=== PATIENT | male | born 1945 | race Hispanic/Latino ===

== ENCOUNTER 2018-06-12 07:40 | Day surgery (SDC) | payer MEDICARE, BC ==
[2018-06-05 11:54] VITALS: BMI 29.0
[~2018-06-12 07:40] MED LIST: Chondroitin/Hyaluronate Opth Syringe KIT (0.55 ml-0.5 ml) IO ONE; Ciprofloxacin 0.3% OPTH SOLN OD SCH; Hyaluronidase Human, Recombi 150 U/ML VIAL ONE; Ketorolac Tromethamine 0.5% Opth Soln (3 ml) OD SCH; Lactated Ringer's 500 ML IV ONE; Lidocaine 2% MPF (5 ml) Inj ONE; Phenylephrine 2.5% Opht Soln OD SCH; Povidone Iodine Ophthalmic 5% Soln ONE; Tetracaine 0.5% Ophth (OR ONLY) ONE; Tropicamide 0.5% Opht Sol OD SCH; acetaZOLAMIDE 500 mg SR Cap PO ONE
[2018-06-12] MEDS ORDERED: Lactated Ringer's 500 ML IV ONE (08:03)
[2018-06-12] MEDS ORDERED: Midazolam 2 MG/2 ML VIAL ONE (09:28)
[2018-06-12] MEDS ORDERED: Hyaluronate Sodium 10 mg/ml Ophth Syringe ONE (09:32)
[2018-06-12] MEDS: Chondroitin/Hyaluronate Opth Syringe KIT (0.55 ml-0.5 ml) IO ONE ×2 (09:34→09:40)
[2018-06-12] MEDS: Carbachol 0.01% IO ONE ×2 (09:36→09:42)
[2018-06-12] MEDS: Tobramycin/Dexamethasone OPHT OINT ONE ×2 (09:37→09:58)
[2018-06-12] MEDS ORDERED: acetaZOLAMIDE 500 mg SR Cap PO ONE (10:45)
--- NOTE | 2018-06-12 12:27 | OP ---
PROCEDURE DATE: 06/12/2018 PREOPERATIVE DIAGNOSIS: Mature cataract, right eye. POSTOPERATIVE DIAGNOSIS: Mature cataract, right eye. OPERATIVE PROCEDURE: Phacoemulsification, right eye, insertion of posterior chamber lens implant. SURGEON: Eddie Barnett MD CO-SURGEON: ANESTHESIA TYPE: Local intravenous sedation. ANESTHESIOLOGIST: . PROCEDURE: The patient was brought into the operating room, placed in supine position, prepped and draped in the usual fashion for ophthalmic surgery. Lid speculum was inserted, lids and exposing globe. A side-port incision was made superiorly and inferiorly with a disposable sharp blade. Anterior chamber was filled with Viscoat. A near clear corneal incision was made temporally with a 2.75-mm keratome. Capsulorrhexis was then performed with Utrata forceps. Hydrodissection carried out with balanced salt solution. Nucleus was phacoemulsified. Remaining cortical fragments were removed with a split irrigation and aspiration system. The capsular sac was filled with Provisc. A posterior chamber lens was then injected into the capsular sac and rotated into horizontal position. Provisc was aspirated out of the anterior chamber. The pupil was constricted with Miochol. The wound was found to be watertight. Topical Betadine, Timoptic, and TobraDex ointment and pressure patch were applied. The patient tolerated the procedure well. Eddie Barnett MD
[2018-06-12 14:08] VITALS: O2SAT 99
[2018-06-12 14:09] VITALS: TEMP 96
[2018-06-12 14:19] VITALS: BP 121/75; PULSE 67; RESP 16
== END 2018-06-12 11:09 | disposition home or self-care (01) ==
LOC: C.SDS 07:40
PROVIDERS: ATTEND Ophthalmology
DX: H25.11 Age-related nuclear cataract, right eye (principal)
CPT/HCPCS: 66984; J2250; J3010; J3470; J7120